=== PATIENT | female | born 1995 | race Caucasian/White ===

== ENCOUNTER 2018-11-16 13:07 | Emergency (ER) | payer OTHER ==
[2018-11-16 13:26] VITALS: BP 103/67
--- NOTE | 2018-11-16 13:41 | UC ---
General HPI - HPI Summary HPI Summary: per triage, Posterior neck pain and stiffness last couple days; worse last night. No fever/chills. Saw PCP yesterday for this and also tick exposure- tx for lyme disease; rx doxycycline x21 days and pain medication. Taking rx pain med w/ pain relief- last dose today 0800. Wants lyme blood test. [ End ] pt states she had been having neck pain x 2 days. she points to the back of her neck. no hx injury or over use. no other joint pains, rash or fever. states she saw Dr Ventura yesterday who started 21 days of Doxycycline for Lyme disease because she had a tick bite 2 months ago. she is here today because she wants to be tested for Lyme disease. she reports that the neck pain has improved with the Doxycycline. She denies taking any pain medication as noted in triage. She states she thought the Doxycyline was for pain as well. - History of Current Complaint Chief Complaint: UCGeneralIllness Stated Complaint: NECK PAIN, ACHY Time Seen by Provider: 11/16/18 13:31 Hx Obtained From: Patient Hx Last Menstrual Period: 11/10/18 Pain Intensity: 2 Associated Signs & Symptoms: Negative: Fever - Allergy/Home Medications Allergies/Adverse Reactions: Allergies Allergy/AdvReac Type Severity Reaction Status Date / Time No Known Allergies Allergy Verified 11/16/18 13:22 Home Medications: Home Medications DOXYcycline CAP(*) [DOXYcycline 100MG CAP(*)] 100 mg PO BID 11/16/18 [History Confirmed 11/16/18] Methylphenidate ER [Concerta] 1 tab DAILY 11/16/18 [History Confirmed 11/16/18] PMH/Surg Hx/FS Hx/Imm Hx - Additional Past Medical History Additional PMH: ADHD - Surgical History Surgical History: None - Family History Known Family History: Positive: None Family History: R & n/C - Social History Alcohol Use: Rare Substance Use Type: None Smoking Status (MU): Never Smoked Tobacco Review of Systems All Other Systems Reviewed And Are Negative: Yes Constitutional: Negative: Fever, Chills Skin: Negative: Rash Musculoskeletal: Negative: Decreased ROM, Edema Neurological: Negative: Weakness, Paresthesia, Numbness Physical Exam Triage Information Reviewed: Yes Appearance: Well-Appearing Vital Signs: Initial Vital Signs Temp 97.7 F 11/16/18 13:20 Pulse 88 11/16/18 13:20 Resp 16 11/16/18 13:20 BP 103/67 11/16/18 13:20 Pulse Ox 99 11/16/18 13:20 Vital Signs Reviewed: Yes Eyes: Positive: Conjunctiva Clear ENT: Positive: Pharynx normal, TMs normal. Negative: Nasal congestion, Nasal drainage Neck: Positive: Supple, Nontender, No Lymphadenopathy. Negative: Nuchal Rigidity Respiratory: Positive: Lungs clear, Normal breath sounds Cardiovascular: Positive: RRR, No Murmur Abdomen Description: Positive: Nontender Bowel Sounds: Positive: Present Musculoskeletal: Positive: ROM Intact, No Edema Neurological: Positive: Alert Psychological: Positive: Age Appropriate Behavior Skin Exam: Normal Skin: Negative: Rashes Course/Dx - Differential Dx - Multi-Symptom Differential Diagnoses: Other - unremarkable exam w/hx neck pain. will do the Lyme titer; however, pt advised that she could have a false negative test early on and that she should not stop her tx unless directed to do so by her pcp. pt also advised she may need a repeat Lyme test if the 1st is negative. she acknowledges both. - Diagnoses Provider Diagnosis: Neck pain Discharge ED - Sign-Out/Discharge Documenting (check all that apply): Patient Departure All imaging exams completed and their final reports reviewed: No Studies - Discharge Plan Condition: Stable Disposition: HOME Patient Education Materials: Lyme Disease (ED), Acute Neck Pain (ED) Referrals: Vance Maldonado MD [Primary Care Provider] - 7 Days - Billing Disposition and Condition Condition: STABLE Disposition: Home - Attestation Statements Provider Attestation: Per institutional requirements, I have reviewed the chart, however, I was not consulted specifically or made aware of this patient by the midlevel provider. I did not personally evaluate, interact with , or disposition this patient.
== END 2018-11-16 14:11 | disposition home or self-care (01) ==
LOC: UCCORT 13:07
DX: M54.2 Cervicalgia (principal); F90.9 Attention-deficit hyperactivity disorder, unspecified type
CPT/HCPCS: 36415; 86618; 99211; G0463